=== PATIENT | male | born 1930 | race Caucasian/White ===

== ENCOUNTER → 2016-09-16 | Outpatient (CLI) | payer MEDICARE, BC ==
[2016-09-16 11:35] LABS: ASPARTATE AMINO TRANSFERASE 23 U/L (15-37); BLOOD UREA NITROGEN 20 mg/dL (7-18)
== END | disposition home or self-care (01) ==
LOC: LAB 11:13
DX: C49.4 Malignant neoplasm of connective and soft tissue of abdomen (principal); D50.0 Iron deficiency anemia secondary to blood loss (chronic)
CPT/HCPCS: 36415; 80053; 85025

== ENCOUNTER → 2016-11-18 | Outpatient (CLI) | payer MEDICARE, BC ==
[2016-11-18 12:27] LABS: BLOOD UREA NITROGEN 19 mg/dL (7-18)
[2016-11-18 12:30] LABS: ASPARTATE AMINO TRANSFERASE 29 U/L (15-37)
== END | disposition home or self-care (01) ==
LOC: LAB 11:57
PROVIDERS: ATTEND Internal Medicine
DX: C49.4 Malignant neoplasm of connective and soft tissue of abdomen (principal); D50.0 Iron deficiency anemia secondary to blood loss (chronic)
CPT/HCPCS: 36415; 80053; 85025

== ENCOUNTER → 2016-12-15 | Outpatient (CLI) | payer MEDICARE, BC ==
[2016-12-15 08:23] LABS: ASPARTATE AMINO TRANSFERASE 26 U/L (15-37); BLOOD UREA NITROGEN 19 mg/dL (7-18)
== END | disposition home or self-care (01) ==
LOC: LAB 07:59
PROVIDERS: ATTEND Internal Medicine
DX: C49.4 Malignant neoplasm of connective and soft tissue of abdomen (principal); D50.0 Iron deficiency anemia secondary to blood loss (chronic)
CPT/HCPCS: 36415; 80053; 85025

== ENCOUNTER → 2017-01-20 | Outpatient (CLI) | payer MEDICARE, BC ==
[2017-01-20 12:02] LABS: HEMATOCRIT 31.7 % (39.2-51.8); HEMOGLOBIN 10.9 g/dL (13.7-18.0)
[2017-01-20 12:11] LABS: ASPARTATE AMINO TRANSFERASE 25 U/L (15-37); BLOOD UREA NITROGEN 16 mg/dL (7-18)
== END | disposition home or self-care (01) ==
LOC: LAB 11:46
PROVIDERS: ATTEND Internal Medicine
DX: C49.4 Malignant neoplasm of connective and soft tissue of abdomen (principal)
CPT/HCPCS: 36415; 80053; 85025

== ENCOUNTER → 2017-02-14 | Outpatient (CLI) | payer MEDICARE, BC ==
[2017-02-14 12:07] LABS: HEMATOCRIT 31.5 % (39.2-51.8); HEMOGLOBIN 10.8 g/dL (13.7-18.0); WHITE BLOOD COUNT 3.6 x10^3/uL (3.4-10)
[2017-02-14 12:18] LABS: ASPARTATE AMINO TRANSFERASE 23 U/L (15-37); BLOOD UREA NITROGEN 14 mg/dL (7-18)
== END | disposition home or self-care (01) ==
LOC: LAB 11:53
PROVIDERS: ATTEND Internal Medicine
DX: C49.4 Malignant neoplasm of connective and soft tissue of abdomen (principal); D50.0 Iron deficiency anemia secondary to blood loss (chronic)
CPT/HCPCS: 36415; 80053; 85025

== ENCOUNTER → 2017-03-30 | Outpatient (CLI) | payer MEDICARE, BC ==
[2017-03-30 11:58] LABS: HEMATOCRIT 32.2 % (39.2-51.8); HEMOGLOBIN 11.1 g/dL (13.7-18.0); WHITE BLOOD COUNT 4.3 x10^3/uL (3.4-10)
[2017-03-30 12:11] LABS: ASPARTATE AMINO TRANSFERASE 24 U/L (15-37); BLOOD UREA NITROGEN 16 mg/dL (7-18)
== END | disposition home or self-care (01) ==
LOC: LAB 11:46
PROVIDERS: ATTEND Internal Medicine
DX: C49.4 Malignant neoplasm of connective and soft tissue of abdomen (principal)
CPT/HCPCS: 36415; 80053; 85025